=== PATIENT | male | born 1950 | race Caucasian/White ===

== ENCOUNTER → 2022-07-31 | Outpatient (CLI) | payer MEDICARE, BC | LOC: M RAD 12:29 | PROVIDERS: ATTEND Physician Assistant | DX: R41.3 Other amnesia (principal) ==

== ENCOUNTER 2025-02-06 14:51 | Inpatient (IN) | payer MEDICARE, BC ==
[~2025-02-06] VITALS: Ht 177.8 cm; Wt 109.2 kg
[2025-02-06 15:28] LABS: KETONE, URINE AUTO RFX 1+ mg/dL (NEGATIVE); LEUKOCYTE ESTERASE UR AUTO RFX NEGATIVE (NEGATIVE); NITRITE, URINE AUTO RFX NEGATIVE (NEGATIVE); RBC, URINE AUTO RFX 2 /HPF (0-3); SQUAM EPITHELIAL CELL UR AURFX 0 /HPF (0-6); WBC, URINE AUTO RFX 2 /HPF (0-3)
[2025-02-06 15:30] LABS: BASO # 0.0 10^3/uL (0.0-0.2); BASO % 0.2 % (0.0-1.0); EOS # 0.0 10^3/uL (0.0-0.5); EOS % 0.0 % (0.0-3.0); LYMPH # 0.6 10^3/uL (1.5-5.0); LYMPH % 2.9 % (24.0-44.0); MONO # 1.6 10^3/uL (0.0-0.8); MONO % 7.6 % (2.0-8.0); NEUTROPHILS # 18.7 10^3/uL (1.5-8.5); NEUTROPHILS % 88.9 % (36.0-66.0); PLATELET COUNT, AUTOMATED 306 10^3/uL (150-450)
[2025-02-06 15:52] LABS: ALT/SGPT 52.0 U/L (7.0-40); AST/SGOT 60.0 U/L (<34)
[2025-02-06] MEDS: LOSARTAN 25 MG TAB PO ONE (17:03)
[2025-02-06] MEDS: ACETAMINOPHEN 500 MG TAB PO ONE (17:04)
[2025-02-06 18:49] VITALS: BP 182/80
[2025-02-06] MEDS: LABETALOL 100 MG/20 ML VIAL IV STA (18:49)
[2025-02-06 19:35] LABS: CALCIUM LEVEL 9.4 MG/DL (8.3-10.6); CARBON DIOXIDE LEVEL 27.0 MMOL/L (20-31); CHLORIDE LEVEL 97.0 MMOL/L (98-107); CREATININE FOR GFR 1.73 MG/DL (0.70-1.30); GLOMERULAR FILTRATION RATE 41.2 (>42); POTASSIUM SERUM 5.2 MMOL/L (3.5-5.1); SODIUM LEVEL 138.0 MMOL/L (136-145)
[2025-02-06] MEDS ORDERED: ISOVUE-370 76% 100 ML VIAL As Ordered ONE (20:00)
[2025-02-06] MEDS ORDERED: JARD1TAB3 PO (21:32)
[2025-02-06] MEDS ORDERED: ROSU40TA81 PO (21:32)
[2025-02-06] MEDS ORDERED: METF-838 PO (21:32)
[2025-02-06] MEDS ORDERED: PIOG1TAB37 PO (21:32)
[2025-02-06] MEDS ORDERED: GLIM4TAB5 PO (21:32)
[2025-02-06] MEDS ORDERED: LOSA25TA13 PO (21:32)
[2025-02-06] MEDS ORDERED: HOME MED LIST COMPLETE! XX SCH (21:35)
[2025-02-06] MEDS ORDERED: HEPARIN SOD 5000 UNITS/ML 1 ML VIAL/SYRINGE IV PRN (22:05)
[2025-02-06] MEDS ORDERED: MORPHINE 4 MG/ML 1 ML VIAL IV PRN (22:05)
[2025-02-06] MEDS ORDERED: GLUCAGON INJ 1 MG VIAL SC PRN (22:05)
[2025-02-06] MEDS ORDERED: hydrALAZINE 20 MG/ML 1 ML VIAL IV PRN (22:05)
[2025-02-06] MEDS ORDERED: DEXTROSE 50% 50 ML SYRINGE IV PRN (22:05)
[2025-02-06] MEDS ORDERED: GLUCOSE 4 GM CHEW PO PRN (22:05)
[2025-02-06] MEDS: HEPARIN SOD 5000 UNITS/ML 1 ML VIAL/SYRINGE IV ONE (23:00)
[2025-02-06] MEDS: HEPARIN DRIP 25,000 UNITS in IV 1 EA IV SCH (23:07)
[2025-02-06] MEDS: NS (Normal Saline) 0.9% 1,000 ML IV SCH (23:10)
[2025-02-06] MEDS: ROSUVASTATIN 10 MG TAB PO SCH (23:12)
[2025-02-07 04:26] LABS: BASO # 0.1 10^3/uL (0.0-0.2); BASO % 0.2 % (0.0-1.0); EOS # 0.0 10^3/uL (0.0-0.5); EOS % 0.0 % (0.0-3.0); LYMPH # 0.7 10^3/uL (1.5-5.0); LYMPH % 3.3 % (24.0-44.0); MONO # 2.0 10^3/uL (0.0-0.8); MONO % 9.3 % (2.0-8.0); NEUTROPHILS # 18.4 10^3/uL (1.5-8.5); NEUTROPHILS % 86.8 % (36.0-66.0); PLATELET COUNT, AUTOMATED 235 10^3/uL (150-450)
[2025-02-07 05:12] LABS: ALT/SGPT 38.0 U/L (7.0-40); AST/SGOT 36.0 U/L (<34); CALCIUM LEVEL 8.7 MG/DL (8.3-10.6); CARBON DIOXIDE LEVEL 27.0 MMOL/L (20-31); CHLORIDE LEVEL 98.0 MMOL/L (98-107); CREATININE FOR GFR 1.73 MG/DL (0.70-1.30); GLOMERULAR FILTRATION RATE 41.2 (>42); POTASSIUM SERUM 4.8 MMOL/L (3.5-5.1); SODIUM LEVEL 138.0 MMOL/L (136-145)
[2025-02-07] MEDS: amLODIPine 10 MG TAB PO SCH (05:26)
[2025-02-07] MEDS: INSULIN LISPRO (NovoLOG) PER UNIT SC SCH ×2 (07:30→21:00)
[2025-02-07 07:58] LABS: INR 1.12
[2025-02-07] MEDS ORDERED: NS (Normal Saline) 0.9% 1,000 ML IV SCH (08:55)
[2025-02-07] MEDS ORDERED: amLODIPine 10 MG TAB PO SCH (09:00)
[2025-02-07 10:00] LABS: PLATELET COUNT, AUTOMATED 235 10^3/uL (150-450)
[2025-02-07] MEDS: MIDAZOLAM INJ 2 MG/2 ML VIAL IV PRN (10:15)
[2025-02-07 10:18] LABS: DRVV SCREEN 45.4 SECONDS
[2025-02-07] MEDS: HEPARIN 1,000 UNITS/ML 10 ML VIAL (FOR RADIOLOGY & DIALYSIS ONLY) IV PRN (10:25)
[2025-02-07 10:26] LABS: INR 1.1
[2025-02-07] MEDS: LIDOCAINE 1% MDV 20 ML VIAL SC SCH (10:41)
[2025-02-07] MEDS: ISOVUE-300 61% 100 ML VIAL IV SCH (10:42)
[2025-02-07 10:45] LABS: CALCIUM LEVEL 8.4 MG/DL (8.3-10.6); CARBON DIOXIDE LEVEL 27.0 MMOL/L (20-31); CHLORIDE LEVEL 99.0 MMOL/L (98-107); CREATININE FOR GFR 1.9 MG/DL (0.70-1.30); GLOMERULAR FILTRATION RATE 36.8 (>42); POTASSIUM SERUM 4.8 MMOL/L (3.5-5.1); SODIUM LEVEL 137.0 MMOL/L (136-145)
[2025-02-07] MEDS ORDERED: ONDANSETRON 4MG/2ML VIAL IV PRN (10:45)
[2025-02-07] MEDS ORDERED: ACETAMINOPHEN 325 MG TAB PO PRN (10:45)
[2025-02-07] MEDS ORDERED: PERCOCET 5MG/325MG TAB PO PRN (10:45)
[2025-02-07 10:59] LABS: PTT LUPUS TYPE ANTICOAG SCREEN 1.12 (0-1.20)
[2025-02-07] MEDS: ONDANSETRON 4MG/2ML VIAL IV STA (11:08)
[2025-02-07] MEDS: NS (Normal Saline) 0.9% 1,000 ML IV SCH (12:23)
[2025-02-07] MEDS ORDERED: ASPIRIN 325 MG TAB PO ONE (16:30)
[2025-02-07 17:52] VITALS: BP 118/65; TEMP 98.7; O2SAT 93
[2025-02-07] MEDS: ACETAMINOPHEN 325 MG TAB PO PRN (19:30)
[2025-02-07 19:35] VITALS: BP 143/64; TEMP 98.1; O2SAT 93
[2025-02-08] VITALS (17 sets, daily range): BP systolic 134–161; BP diastolic 60–89; TEMP 98.3–99; O2SAT 92–100
[2025-02-08 00:23] LABS: ABG BASE EXCESS 0.8 (-2.0-2.0); ABG HCO3 29.1 MMOL/L (22.0-26.0); ABG O2 SATURATION 59.3 % (95.0-99.0); ABG PARTIAL PRESSURE CO2 63.4 mmHg (35.0-45.0); ABG STANDARD HCO3 24.3 MMOL/L. (22.0-26.0); ABG TOTAL CO2 31.0 MMOL/L (23.0-31.0); ABG pH (ARTERIAL) 7.279 UNITS (7.350-7.450)
[2025-02-08 00:24] LABS: ABG PARTIAL PRESSURE O2 32.8 mmHg (75.0-100.0)
[2025-02-08 00:44] LABS: BASO # 0.0 10^3/uL (0.0-0.2); BASO % 0.2 % (0.0-1.0); EOS # 0.0 10^3/uL (0.0-0.5); EOS % 0.2 % (0.0-3.0); LYMPH # 1.2 10^3/uL (1.5-5.0); LYMPH % 8.1 % (24.0-44.0); MONO # 1.5 10^3/uL (0.0-0.8); MONO % 10.8 % (2.0-8.0); NEUTROPHILS # 11.5 10^3/uL (1.5-8.5); NEUTROPHILS % 80.3 % (36.0-66.0); PLATELET COUNT, AUTOMATED 241 10^3/uL (150-450)
[2025-02-08 01:08] LABS: ALT/SGPT 33.0 U/L (7.0-40); AST/SGOT 37.0 U/L (<34); CALCIUM LEVEL 8.9 MG/DL (8.3-10.6); CARBON DIOXIDE LEVEL 29.0 MMOL/L (20-31); CHLORIDE LEVEL 101.0 MMOL/L (98-107); CREATININE FOR GFR 2.78 MG/DL (0.70-1.30); GLOMERULAR FILTRATION RATE 23.3 (>42); POTASSIUM SERUM 4.3 MMOL/L (3.5-5.1); SODIUM LEVEL 141.0 MMOL/L (136-145)
[2025-02-08] MEDS ORDERED: LEVALBUTEROL 1.25 MG 0.5ML CONCENTRATE NEB INH PRN (01:20)
[2025-02-08] MEDS: LEVALBUTEROL 1.25 MG 0.5ML CONCENTRATE NEB NEB ONE ×3 (01:23)
[2025-02-08 01:46] LABS: ABG BASE EXCESS 1.0 (-2.0-2.0); ABG HCO3 26.8 MMOL/L (22.0-26.0); ABG O2 SATURATION 99.5 % (95.0-99.0); ABG PARTIAL PRESSURE CO2 47.5 mmHg (35.0-45.0); ABG PARTIAL PRESSURE O2 379.4 mmHg (75.0-100.0); ABG STANDARD HCO3 25.4 MMOL/L. (22.0-26.0); ABG TOTAL CO2 28.3 MMOL/L (23.0-31.0); ABG pH (ARTERIAL) 7.370 UNITS (7.350-7.450)
[2025-02-08] MEDS: NS (Normal Saline) 0.9% 1,000 ML in IV 1 EA IV ONE (01:54)
[2025-02-08 04:54] LABS: BASO # 0.0 10^3/uL (0.0-0.2); BASO % 0.1 % (0.0-1.0); EOS # 0.0 10^3/uL (0.0-0.5); EOS % 0.0 % (0.0-3.0); LYMPH # 0.3 10^3/uL (1.5-5.0); LYMPH % 1.7 % (24.0-44.0); MONO # 0.5 10^3/uL (0.0-0.8); MONO % 3.0 % (2.0-8.0); NEUTROPHILS # 15.0 10^3/uL (1.5-8.5); NEUTROPHILS % 94.8 % (36.0-66.0); PLATELET COUNT, AUTOMATED 239 10^3/uL (150-450)
[2025-02-08 05:28] LABS: ALT/SGPT 40 U/L (7.0-40); AST/SGOT 64 U/L (<34); CALCIUM LEVEL 8.4 MG/DL (8.3-10.6); CARBON DIOXIDE LEVEL 24 MMOL/L (20-31); CHLORIDE LEVEL 101 MMOL/L (98-107); CREATININE FOR GFR 2.50 MG/DL (0.70-1.30); GLOMERULAR FILTRATION RATE 26.5 (>42); SODIUM LEVEL 139 MMOL/L (136-145)
[2025-02-08] MEDS ORDERED: ASPIRIN 81 MG ENTERIC TABLET PO SCH (09:00)
[2025-02-11 16:06] LABS: CARDIOLIPIN IGA ANTIBODY < 2.0 APL-U/mL (<20.0); CARDIOLIPIN IGG ANTIBODY < 2.0 GPL-U/mL (<20.0); CARDIOLIPIN IGM ANTIBODY 2.1 MPL-U/mL (<20.0)
[2025-02-11 16:32] LABS: PROTEIN C ANTIGEN 84 % normal (70-140)
[2025-02-11 17:06] LABS: PROTEIN S ANTIGEN FREE 163 % normal (57-171); PROTEIN S ANTIGEN TOTAL 133 % normal (70-140)
[2025-02-12 20:13] LABS: FACTOR II PROTHROMBIN GENE AN NEGATIVE
== END 2025-02-08 05:01 | disposition critical access hospital (66) | DRG 673 ==
LOC: M ED 14:51 → M ED INP 22:05 → M PCU 02-07 17:44 → M ICU 02-08 01:13
PROVIDERS: ADMIT Internal Medicine; ATTEND Internal Medicine
PROC: 04793DZ Dilation of Right Renal Artery with Intraluminal Device, Percutaneous Approach (ICD-10-PCS; principal; 2025-02-07 09:30)
DX: N28.0 Ischemia and infarction of kidney (principal); I63.232 Cerebral infarction due to unspecified occlusion or stenosis of left carotid arteries; J96.02 Acute respiratory failure with hypercapnia; G93.41 Metabolic encephalopathy; I16.9 Hypertensive crisis, unspecified; N17.9 Acute kidney failure, unspecified; I69.353 Hemiplegia and hemiparesis following cerebral infarction affecting right non-dominant side; I10 Essential (primary) hypertension; E78.5 Hyperlipidemia, unspecified; E87.5 Hyperkalemia; I48.91 Unspecified atrial fibrillation; E11.9 Type 2 diabetes mellitus without complications; D72.829 Elevated white blood cell count, unspecified; Z85.828 Personal history of other malignant neoplasm of skin; Z79.899 Other long term (current) drug therapy